=== PATIENT | male | born 2000 | race Caucasian/White ===

== ENCOUNTER 2022-11-14 09:01 | Emergency (ER) | payer SELFPAY ==
[2022-11-14 09:10] VITALS: BP 108/67; PULSE 61; RESP 18; TEMP 97.6; BMI 24.0
[2022-11-14] MEDS ORDERED: ACETAMINOPHEN 500 MG TABLET (FP) PO ONE (10:18)
[2022-11-14 10:41] LABS: PH,URINE 5.5 (5.0-8.0); URINE APPEARANCE CLEAR; URINE BILIRUBIN NEGATIVE (NEGATIVE); URINE COLOR YELLOW; URINE GLUCOSE (UA) NEGATIVE (NEGATIVE); URINE KETONE NEGATIVE (NEGATIVE); URINE LEUK ESTERASE NEGATIVE (NEGATIVE); URINE NITRITE NEGATIVE (NEGATIVE); URINE PROTEIN NEGATIVE (NEGATIVE); URINE UROBILINOGEN 0.2 mg/dL (0.2-1.0)
[2022-11-14] MEDS ORDERED: ACETAMINOPHEN 325 MG TABLET (FP) ONE (11:28)
[2022-11-14 14:41] LABS: SYPHILIS W/ RPR CONF NON-REACTIVE (NONREACTIVE)
[2022-11-14 15:09] LABS: HIV INTERPRETATION NEGATIVE (NEGATIVE)
== END 2022-11-14 13:56 | disposition home or self-care (01) ==
LOC: JERFT 09:01
DX: R10.30 Lower abdominal pain, unspecified (principal); R39.11 Hesitancy of micturition; R30.0 Dysuria
CPT/HCPCS: 36415; 81003; 86780; 87086; 87389; 87491; 87591; 99283-25